=== PATIENT | male | born 1970 | race Caucasian/White ===

== ENCOUNTER → 2021-10-13 09:37 | Outpatient (CLI) | payer OTHER, SELFPAY ==
--- NOTE | 2021-10-13 09:52 | XR_ITS ---
FINAL REPORT CLINICAL HISTORY: pain, wart on foot FINDINGS: LEFT FOOT Three views demonstrate no acute fracture or dislocation. The visualized joint spaces are normally aligned. There are mild degenerative changes with calcaneal spurring. The soft tissues are unremarkable. IMPRESSION: No acute bony abnormality. Reviewed, Interpreted and Dictated by Ameya Araujo III, MD Transcribed by Serina Carrion Authenticated by Ameya Araujo III, MD on 10/13/2021 11:15:27 AM [facility]
--- NOTE | 2021-10-13 09:52 | XR_ITS ---
FINAL REPORT CLINICAL HISTORY: pain FINDINGS: RIGHT FOOT Three views demonstrate no acute fracture or dislocation. The visualized joint spaces are normally aligned. There are mild degenerative changes with calcaneal spurring. The soft tissues are unremarkable. IMPRESSION: No acute bony abnormality. Reviewed, Interpreted and Dictated by Ameya Araujo III, MD Transcribed by Serina Carrion Authenticated by Ameya Araujo III, MD on 10/13/2021 11:15:03 AM [facility]
== END ==
PROVIDERS: PCP Family Medicine; Visit Provider Podiatrist
DX: M79.672 Pain in left foot (principal); M79.671 Pain in right foot
CPT/HCPCS: 73630

== ENCOUNTER 2024-10-29 10:30 | Outpatient (CLI) | payer BC, SELFPAY | END 2024-10-29 23:59 | disposition home or self-care (01) | LOC: LAB.DROPOF 10-30 09:14 | PROVIDERS: PCP Podiatrist; Visit Provider Podiatrist | DX: L60.0 Ingrowing nail (principal) | CPT/HCPCS: 87070; 87077; 87186; 87205 ==

== ENCOUNTER 2025-03-12 10:38 | Outpatient (CLI) | payer BC, SELFPAY ==
--- NOTE | 2025-03-12 10:40 | XR_ITS ---
FINAL REPORT CLINICAL HISTORY: left foot and ankle pain, unknown injury FINDINGS: LEFT ANKLE Three views demonstrate no acute fracture or dislocation. The visualized joint spaces are normally aligned. There is a 1.4 cm os trigonum. A small plantar calcaneal spur is noted. There is mild soft tissue edema. IMPRESSION: No acute bony abnormality. Reviewed, Interpreted and Dictated by Silvino Thornton MD Transcribed by Serina Carrion Authenticated and [facility]
--- NOTE | 2025-03-12 10:40 | XR_ITS ---
FINAL REPORT CLINICAL HISTORY: left foot and ankle pain, unknown injury FINDINGS: LEFT FOOT Three views of the left foot demonstrate no acute fracture or dislocation. There is a 1.4 cm os trigonum. A small plantar calcaneal spur is noted. The visualized joint spaces are normally aligned. The soft tissues are unremarkable. IMPRESSION: No acute bony abnormality. Reviewed, Interpreted and Dictated by Silvino Thornton MD Transcribed by Serina Carrion Authenticated and . [facility]
== END 2025-03-12 23:59 | disposition home or self-care (01) ==
LOC: RAD 10:39
PROVIDERS: PCP Family Medicine; Visit Provider Podiatrist
DX: M77.32 Calcaneal spur, left foot (principal); Q68.8 Other specified congenital musculoskeletal deformities
CPT/HCPCS: 73610; 73630